=== PATIENT | female | born 1970 | race Caucasian/White ===

== ENCOUNTER 2024-11-20 07:06 | Emergency (ER) | payer BC, SELFPAY ==
[2024-11-20 07:09] VITALS: BP 183/118
[2024-11-20 08:04] VITALS: BP 163/109
[2024-11-20] MEDS: PERCOCET 5/325 1 TABLET PO (08:05)
--- NOTE | 2024-11-20 08:09 | ED.MUSCINJ ---
HPI-Injury
General
Chief Complaint: Musculo-Skeletal Complaint
Source: patient
Exam Limitations: none
Time Seen by Provider: 11/20/24 07:22
Nursing documentation reviewed up to this point in time: agreed with
History of Present Illness-Injury
Initial Injury comments:
54-year-old female with no significant past medical history was walking her dog earlier this morning when she tripped and fell injuring her left wrist. She denies hitting her head or any other injury.
Past History
Past History
ED Past Medical History: None
ED Past Surgical History: Gynecological and Tonsilectomy
Review of Systems
Review of Systems
Allergies reviewed?: Yes
All Other Systems: ROS reviewed and negative except as documented in HPI and ROS
Musculoskeletal: Reports other (Pain left wrist)
Skin: Reports no symptoms
Neurological: Denies weakness or numbness
Musculoskeletal Injury Exam
Musculoskeletal Injury Exam
Left Wrist:
Pain with Movement?: Moderate
Tender to palpation?: Moderate
Soft tissue swelling?: Mild
External deformity and angulation?: Mild
Crepitus with movement?: No
Range of motion: Limited
Distal skin color and temperature: normal-warm & good color
Capillary Refill: normal
Normal distal neurovascular exam?: Yes
Phy Exam
Physical Exam
Physical Exam:
PHYSICAL EXAMINATION:
General: no apparent distress, not acutely ill
Neuro: alert and oriented.
Psychiatric: well kept. interactive and cooperative
Musculoskeletal: Moves with ease
Skin: Warm, pink.
Injury Course
Orders/Labs/Results
Orders:
Orders
11/20/24 07:11
CR Wrist - Left Min 3 Views Urgent
Comment:
Reason For Exam: fall
11/20/24 07:23
Volar Left-Treatment ONCE
11/20/24 07:33
Ring Removal- Treatment PRN
Sling Left-Treatment ONCE
11/20/24 07:54
Oxycodone/Acetaminophen [Percocet 5/325] 1 tablet PO NOW STA
Procedures
Splint Check
Splint checked by provider?: Yes
Circulation/Movement/Sensation post splint application: brisk cap refill and full sensation
MDM/Problems Addressed
MDM/Problems Addressed:
54-year-old female with no significant past medical history was walking her dog earlier this morning when she tripped and fell injuring her left wrist. She denies hitting her head or any other injury.
X-ray left wrist initially read by this examiner: Comminuted nondisplaced mildly angulated fracture of the distal radius, avulsion fracture ulnar styloid.
Patient's ring was removed. Distal neurovascular intact.
Splint and sling applied
Pain medicine given
Referred to orthopedics
*Critical Care Note
Total Time (30-74mins, 75-104mins- exclusive of procedures): Not Applicable
ED Attending Note
-
Portions of this chart may have been created with voice recognition software.� Occasional wrong word or��sound alike� substitutions may have occurred due to the inherent limitations of voice recognition software.
Discharge Plan
Departure
Patient Disposition: Home (Routine Discharge)
Date of Disposition: 11/20/24
Time of Disposition: 08:04
Patient with high blood pressure during this ER visit?: Yes
Condition: Good
Discharge Problem:
Fracture of distal end of left radius and ulna
Instructions: Wrist Fracture (DC), Using Cold for Pain
Prescriptions:
New
hydrocodone-acetaminophen 5-300 mg tablet
1 tab PO Q6H PRN (Reason: Pain) Qty: 7 0RF
No Action
Vitamins
1 tab PO DAILY
ibuprofen 600 MG tablet
600 mg PO Q4HPRN PRN (Reason: moderate pain/cramps) 0RF
amoxicillin 250 MG capsule
250 mg PO DAILY Qty: 7 0RF
Referrals:
Radha Moreno I., DO [Active] - Next open appointment
Ashwin Chau, DO [Family Provider] -
Activity Restrictions/Additional Instructions:
As we discussed, ibuprofen 600 mg, with food, every 6 hours as needed for mild to moderate pain and use the Vicodin which is hydrocodone as needed for worse pain.
I sent a prescription to your pharmacy for the Vicodin.
Do not drive or operate any machinery within 6 hours of taking the Vicodin.
Call the orthopedic doctors office later this morning and make next available appointment.
Elevate the arm slightly higher than your heart and apply cold compress 20 minutes off and on while awake until further instructed by the orthopedic
Interventions
Interventions:
*Risk Screen - Suicide Last Done: 11/20/24 07:09
*General Assessment Last Done: 11/20/24 07:09
*Neglect/Abuse Screening Last Done: 11/20/24 07:34
*ED COVID-19 Vaccine History Last Done: 11/20/24 07:09
*Nursing Disposition Last Done: 11/20/24 08:13
ED-Musculoskeletal Assessment Last Done: 11/20/24 07:34
Discharge Date and Time
Discharge Date/Time: 11/20/24 08:14
Print Language: IRISH
== END 2024-11-20 08:14 | disposition home or self-care (01) ==
LOC: EMR 07:06
PROVIDERS: EMERGENCY PHYSICIAN Emergency Medicine; FAMILY PHYSICIAN Internal Medicine
DX: S52.592A Other fractures of lower end of left radius, initial encounter for closed fracture (principal); S52.615A Nondisplaced fracture of left ulna styloid process, initial encounter for closed fracture; W01.0XXA Fall on same level from slipping, tripping and stumbling without subsequent striking against object, initial encounter; Y93.K1 Activity, walking an animal
CPT/HCPCS: 29125; 99283; 73110